=== PATIENT | female | born 1980 | race American Indian/Alaskan Native ===

== ENCOUNTER 2019-05-25 08:29 | Emergency (ER) | payer OTHER ==
[2019-05-25 08:59] VITALS: BP 138/96
--- NOTE | 2019-05-25 09:36 | Emergency Department Report ---
Upper Extremity - HPI Chief Complaint: Extremity Injury, Upper Stated Complaint: (R) ELBOW PAIN Time Seen by Provider: 05/25/19 09:07 Upper Extremity: Right Elbow Occurred When: Today Mechanism: Fall (while trying to sit back in a chair and fell onto the floor striking the elbow causing pain. ) Severity: mild, moderate Symptoms: Yes Pain with Movement (and palpation of elbow. ), No Deformity, No Limited Range of Movement, No Numbness, No Weakness, No Swelling, No Bruising/Ecchymosis, No Laceration or Abrasion ED Review of Systems ROS: Stated complaint: (R) ELBOW PAIN Other details as noted in HPI Comment: All other systems reviewed and negative ED Past Medical Hx - Past Medical History Previous Medical History?: No - Surgical History Past Surgical History?: No - Social History Smoking Status: Never Smoker Substance Use Type: None Upper Extremity Exam - Exam General: Vital signs noted. No distress. Alert and acting appropriately. Head and Torso: No HEENT Abnormality, No Neck Tenderness, No Chest/Lungs Abn ormality, No Abdominal Tenderness, No Back Tenderness Shoulder Exam: Yes Normal Range of Motion in Shoulder, No Shoulder Tenderness, No Clavicle Tenderness, No Shoulder Deformity, No AC Joint Tenderness Arm Exam: No Arm/Humerus Tenderness, No Arm Deformity Elbow: Yes Elbow Tenderness (at the olecranon process. No tenderness to the epicondyles. No Tinel sign. Pulses 2+. No bruising or swelling noted. Bursa sac appears to be normal), No Normal Range of Motion in Elbow, No Elbow Deformity Forearm: No Forearm Tenderness, No Forearm Deformity, No Pain with Pronation, No Pain with Supination Wrist: Yes Normal ROM in Wrist, No Wrist Tenderness, No Wrist Deformity, No S nuffbox Tenderness, No Pain with Axial Thumb Compression Hand: Yes Normal ROM in Digit(s), No Hand Tenderness, No Hand Deformity, No Digit Tenderness, No Digit(s) Deformity, No Tendon Dysfunction CMS Exam: Yes Normal Distal Pulses, Yes Normal Capillary Refill, Yes Normal Distal Sensation, No Broken Skin ED Course Vital Signs 05/25/19 08:57 Temperature 98.8 F Pulse Rate 75 Respiratory 17 Rate Blood Pressure 138/96 [Left] O2 Sat by Pulse 100 Oximetry ED Medical Decision Making - Radiology Data Radiology results: report reviewed Findings [facility] [address] [place] [address] XRay Report Signed Patient: VILMA ABREU MR#: [id number] : 1980 Acct:[id number] Age/Sex: 38 / F ADM Date: 05/25/19 Loc: ED Attending Dr: Ordering Physician: YUVAL TIWARI Date of Service: 05/25/19 Procedure(s): XR elbow 3+V RT Accession Number(s): [id number] cc: YUVAL TIWARI Fluoro Time In Minutes: RIGHT ELBOW 3 VIEWS INDICATION / CLINICAL INFORMATION: Right elbow pain after fall. COMPARISON: None available. FINDINGS: BONES and JOINT(S): No acute fracture or subluxation. No significant arthritis. SOFT TISSUES: No significant abnormality. ADDITIONAL FINDINGS: None. IMPRESSION: No significant abnormality of the right elbow. Signer Name: Shabbir Carballo MD Signed: 05/25/2019 9:43 AM Workstation Name: [id number] Transcribed By: MN Dictated By: Shabbir Carballo MD Electronically Authenticated By: Shabbir Carballo MD Signed Date/Time: 05/25/19942 DD/ 1 TD/TT: - Medical Decision Making 38-year-old [place] female status post slip and fall striking right elbow on the ground. I have low suspicion at this time for elbow fracture or dislocation, compartment syndrome, arterial or nerve injury. Mechanism was still proceed with an x-ray to ensure no osseous trauma. She still is able to demonstrate full range of motion. Critical care attestation.: If time is entered above; I have spent that time in minutes in the direct care of this critically ill patient, excluding procedure time. ED Disposition Clinical Impression: Elbow contusion Disposition: DC-01 TO HOME OR SELFCARE Is pt being admited?: No Does the pt Need Aspirin: No Condition: Stable Instructions: Contusion in Adults (ED), Ice Pack Application (ED) Referrals: PRIMARY CAREMD [Primary Care Provider] - 3-5 Days ANTONETTE KNAPP MD [Staff Physician] - 3-5 Days
--- NOTE | 2019-05-25 09:48 | XRay Report ---
RIGHT ELBOW 3 VIEWS INDICATION / CLINICAL INFORMATION: Right elbow pain after fall. COMPARISON: None available. FINDINGS: BONES and JOINT(S): No acute fracture or subluxation. No significant arthritis. SOFT TISSUES: No significant abnormality. ADDITIONAL FINDINGS: None. IMPRESSION: No significant abnormality of the right elbow. Signer Name: Shabbir Carballo MD Signed: 05/25/2019 9:43 AM Workstation Name: [id number]
== END 2019-05-25 10:57 | disposition home or self-care (01) ==
LOC: ED 08:29
DX: S50.01XA Contusion of right elbow, initial encounter (principal); W18.30XA Fall on same level, unspecified, initial encounter; Y93.89 Activity, other specified; Y92.89 Other specified places as the place of occurrence of the external cause; Y99.8 Other external cause status
CPT/HCPCS: 99283